=== PATIENT | female | born 1985 | race Caucasian/White ===

== ENCOUNTER → 2017-05-03 | Outpatient (CLI) | payer BC ==
--- NOTE | 2017-05-03 09:59 | DIAGNOSTIC IMAGING REPORT ---
LEFT WRIST ULTRASOUND CLINICAL HISTORY: LEFT WRIST PAIN M25.532 COMPARISON STUDY: None. FINDINGS: At the patient's point of interest there is a thickened tendon within the left wrist. There is no surrounding edema, fluid collection, or mass. IMPRESSION: A single thickened tendon within the left wrist which corresponds to the patient's area of interest. This is consistent with a tendinopathy. Electronically signed by: Yony oT M.D. 05/03/2017 9:58 AM Dictated Date/Time: 05/03/2017 9:31 AM
== END | disposition home or self-care (01) ==
LOC: C.ULTR 08:47
PROVIDERS: ATTEND Family Medicine
DX: M25.532 Pain in left wrist (principal); M67.832 Other specified disorders of synovium, left wrist